=== PATIENT | female | born 1955 | race Caucasian/White ===

== ENCOUNTER → 2016-10-14 | Outpatient (CLI) | payer OTHER ==
[2016-10-14 12:08] LABS: BASO ABS # 0.03 K/uL (0-0.2); COMPLETE YES; EOS % 2.2 %; LYMPH % 32.2 %; LYMPH ABS # 1.01 K/uL (1.2-3.4); MEAN CORPUSCULAR HEMOGLOBIN 32.3 pg (25-34); MEAN PLATELET VOLUME 10.5 fL (7.4-10.4); MONO % 11.1 %; NEUT % 53.5 %; PLATELET COUNT 207 K/uL (130-400); RED BLOOD COUNT 4.21 M/uL (4.2-5.4); WHITE BLOOD COUNT 3.14 K/uL (4.8-10.8)
[2016-10-14 12:21] LABS: BLOOD UREA NITROGEN 14 mg/dl (7-18); BUN/CREATININE RATIO 21.5 (10-20); CALCIUM 8.9 mg/dl (8.5-10.1); CARBON DIOXIDE 30 mmol/L (21-32); CHLORIDE 108 mmol/L (98-107); CREATININE 0.67 mg/dl (0.60-1.20); GLUCOSE 89 mg/dl (70-99); SODIUM 142 mmol/L (136-145)
[2016-10-14 12:33] LABS: CHOLESTEROL 157 mg/dl (0-200); HDL CHOLESTEROL 39 mg/dl; LDL CHOLESTEROL CALCULATED 100 mg/dl; THYROID STIMULATING HORMONE 0.983 uIu/ml (0.300-4.500); TRIGLYCERIDES 90 mg/dl (0-150); VERY LOW DENSITY LIPOPROT CALC 18 mg/dl
== END | disposition home or self-care (01) ==
LOC: C.LAB 10:32
PROVIDERS: ATTEND Internal Medicine Cardiovascular Disease
DX: R07.89 Other chest pain (principal)

== ENCOUNTER → 2016-10-20 | Outpatient (CLI) | payer OTHER | END | disposition home or self-care (01) | LOC: C.PAPS 12:04 | PROVIDERS: ATTEND Nurse Practitioner Adult Health | DX: Z12.4 Encounter for screening for malignant neoplasm of cervix (principal) ==

== ENCOUNTER → 2016-12-29 | Outpatient (CLI) | payer OTHER ==
[2016-12-29 12:09] LABS: BASO % 0.6 %; BASO ABS # 0.03 K/uL (0-0.2); COMPLETE YES; EOS % 3.3 %; HEMATOCRIT 40.1 % (37-47); LYMPH % 25.8 %; LYMPH ABS # 1.34 K/uL (1.2-3.4); MEAN CELL VOLUME 95.9 fL (80-100); MEAN CORPUSCULAR HEMOGLOBIN 31.6 pg (25-34); MEAN CORPUSCULAR HGB CONC 32.9 g/dl (32-36); MEAN PLATELET VOLUME 10.4 fL (7.4-10.4); MONO % 11.9 %; NEUT % 58.4 %; PLATELET COUNT 220 K/uL (130-400); RED BLOOD COUNT 4.18 M/uL (4.2-5.4); WHITE BLOOD COUNT 5.19 K/uL (4.8-10.8)
== END | disposition home or self-care (01) ==
LOC: C.LAB 11:00
PROVIDERS: ATTEND Nurse Practitioner Adult Health
DX: D72.819 Decreased white blood cell count, unspecified (principal)

== ENCOUNTER → 2017-04-19 | Outpatient (CLI) | payer OTHER ==
--- NOTE | 2017-04-19 11:58 | DIAGNOSTIC IMAGING REPORT ---
FLUOROSCOPIC IMAGES OF THE LUMBAR SPINE CLINICAL HISTORY: Low back pain. COMPARISON: None FLUOROSCOPY TIME: FINDINGS: Alignment of the lumbar spine is anatomic. Vertebral body heights are maintained. There is no fracture or suspicious lesion within the lumbar spine. The disc spaces are preserved. There is minimal endplate osteophytosis. There is mild multilevel facet arthrosis. IMPRESSION: 1. No acute lumbar spine fracture or subluxation. 2. Minimal multilevel degenerative disc disease and moderate multilevel facet arthrosis. Electronically signed by: Cipriano Lai M.D. 04/19/2017 11:57 AM Dictated Date/Time: 04/19/2017 11:56 AM
== END | disposition home or self-care (01) ==
LOC: C.RAD 10:49
PROVIDERS: ATTEND Family Medicine
DX: M51.36 Other intervertebral disc degeneration, lumbar region (principal); M47.896 Other spondylosis, lumbar region

== ENCOUNTER → 2017-04-25 | Outpatient (CLI) | payer OTHER ==
[~2017-04-25] MED LIST: OPTIRAY 320 IV PRN
[2017-04-25 16:39] LABS: BASO % 0.2 %; BASO ABS # 0.02 K/uL (0-0.2); COMPLETE YES; EOS % 0.5 %; HEMATOCRIT 38.4 % (37-47); IG% 0.4 %; LYMPH % 25.1 %; LYMPH ABS # 2.07 K/uL (1.2-3.4); MEAN CORPUSCULAR HEMOGLOBIN 32.3 pg (25-34); MEAN CORPUSCULAR HGB CONC 33.6 g/dl (32-36); MEAN PLATELET VOLUME 9.6 fL (7.4-10.4); MONO % 10.7 %; NEUT % 63.1 %; PLATELET COUNT 275 K/uL (130-400); WHITE BLOOD COUNT 8.24 K/uL (4.8-10.8)
[2017-04-25 17:04] LABS: ALB/GLOB RATIO 1.2 (0.9-2); ALKALINE PHOSPHATASE 74 U/L (45-117); ALT/SGPT 19 U/L (12-78); AMYLASE 55 U/L (25-115); AST/SGOT 15 U/L (15-37); BLOOD UREA NITROGEN 21 mg/dl (7-18); BUN/CREATININE RATIO 28.1 (10-20); CALCIUM 9.4 mg/dl (8.5-10.1); CARBON DIOXIDE 26 mmol/L (21-32); CHLORIDE 107 mmol/L (98-107); CREATININE 0.74 mg/dl (0.60-1.20); GLUCOSE 95 mg/dl (70-99); POTASSIUM 3.7 mmol/L (3.5-5.1); SODIUM 142 mmol/L (136-145)
--- NOTE | 2017-04-25 19:00 | DIAGNOSTIC IMAGING REPORT ---
CT ABD/PELVIS IV AND ORAL CONT CLINICAL HISTORY: Abdominal pain. Back pain. Possible bowel obstruction. COMPARISON STUDY: None. TECHNIQUE: Following the IV administration of 120 mL of Optiray-320, CT scan of the abdomen and pelvis was performed from the lung bases to the proximal femurs. Images are reviewed in the axial, sagittal, and coronal planes. IV contrast was administered without complication. A dose lowering technique was utilized adhering to the principles of ALARA. CT DOSE: 574.13 mGy.cm FINDINGS: Lower chest: There are bibasal atelectatic changes. Liver: The contrast-enhanced liver is normal in size, contour, and attenuation. There is no intrahepatic biliary ductal dilatation. The hepatic veins and portal veins are patent. Gallbladder: Unremarkable. Spleen: Normal in size and attenuation. Pancreas: Unremarkable. Adrenal glands: Unremarkable. Kidneys: There is symmetric renal cortical enhancement. The kidneys are normal in size without hydronephrosis. Bowel: There are no transition zones indicate bowel obstruction. There is no evidence of acute diverticulitis. There is a moderate amount of stool within the right colon. There is no evidence of acute appendicitis. Peritoneum: There is no intraperitoneal free air or abdominal ascites. Vasculature: The abdominal aorta is normal in course and caliber. Adenopathy: None. Pelvic viscera: The bladder, and pelvic viscera are unremarkable. Skeletal structures: There is an inferior L1 endplate deformity. This remain similar to the prior conventional radiographic study dated 04/19/2017 IMPRESSION: 1. No evidence of bowel obstruction. No evidence of free air 2. No evidence of acute diverticulitis. No evidence of acute appendicitis 3. Moderate stool within the ascending, transverse and proximal descending colon. Clinical correlation in regards to constipation is recommended. Electronically signed by: Shad Crenshaw M.D. 04/25/2017 6:59 PM Dictated Date/Time: 04/25/2017 6:54 PM
== END | disposition home or self-care (01) ==
LOC: C.CTS 16:19
PROVIDERS: ATTEND Family Medicine
DX: R10.84 Generalized abdominal pain (principal); M54.9 Dorsalgia, unspecified

== ENCOUNTER → 2017-05-19 | Outpatient (CLI) | payer OTHER ==
--- NOTE | 2017-05-20 13:42 | MAMMOGRAPHY REPORT ---
BILATERAL DIGITAL SCREENING MAMMOGRAM TOMOSYNTHESIS WITH CAD: 05/19/2017 CLINICAL HISTORY: Routine screening. Patient has no complaints. TECHNIQUE: Breast tomosynthesis in addition to standard 2D mammography was performed. Current study was also evaluated with a Computer Aided Detection (CAD) system. COMPARISON: Comparison is made to exams dated: 05/07/2016 mammogram, 02/18/2015 mammogram, 08/19/2014 m ammogram, 02/26/2014 mammogram, 02/18/2014 mammogram, and 02/16/2013 mammogram - maria eugenia Frank Bo. BREAST COMPOSITION: There are scattered areas of fibroglandular density in both breasts. FINDINGS: No suspicious masses, calcifications, or areas of architectural distortion are noted in ei ther breast. There has been no significant interval change compared to prior exams. Scattered bilater al benign-appearing calcifications are not significantly changed. IMPRESSION: ACR BI-RADS CATEGORY 2: BENIGN There is no mammographic evidence of malignancy. A 1 year screening mammogram is recommended. The pa tient will receive written notification of the results. Approximately 10% of breast cancers are not detected with mammography. A negative mammographic report should not delay biopsy if a clinically suggestive mass is present. Kala Caceres M.D. /:05/19/2017 16:37:07 Criminal Defense Lawyer: Albina Yoo, [facility] letter sent: Normal 1/2 BI-RADS Code: ACR BI-RADS Category 2: Benign
== END | disposition home or self-care (01) ==
LOC: C.MAMM 08:49
PROVIDERS: ATTEND Nurse Practitioner Adult Health
DX: Z12.31 Encounter for screening mammogram for malignant neoplasm of breast (principal)

== ENCOUNTER → 2017-07-04 | Outpatient (CLI) | payer OTHER | END | disposition home or self-care (01) | LOC: C.MAMM 08:43 | PROVIDERS: ATTEND Internal Medicine Rheumatology | DX: M81.0 Age-related osteoporosis without current pathological fracture (principal); M85.88 Other specified disorders of bone density and structure, other site; M85.851 Other specified disorders of bone density and structure, right thigh; M85.852 Other specified disorders of bone density and structure, left thigh ==

== ENCOUNTER → 2017-07-22 | Outpatient (CLI) | payer OTHER ==
[2017-07-22 10:58] LABS: CALCIUM 9.4 mg/dl (8.5-10.1); CREATININE 0.73 mg/dl (0.60-1.20)
[2017-07-26 17:16] LABS: ALBUMIN 4.4 G/DL (3.8-4.8); GAMMA GLOBULIN 0.9 G/DL (0.8-1.7); TOTAL PROTEIN 7.1 G/DL (6.2-8.3)
== END | disposition home or self-care (01) ==
LOC: C.LAB1850 09:42
PROVIDERS: ATTEND Internal Medicine Rheumatology
DX: M81.0 Age-related osteoporosis without current pathological fracture (principal); E61.8 Deficiency of other specified nutrient elements; E55.9 Vitamin D deficiency, unspecified

== ENCOUNTER → 2017-08-04 | Outpatient (CLI) | payer OTHER | END | disposition home or self-care (01) | LOC: C.LAB1850 11:31 | PROVIDERS: ATTEND Internal Medicine Rheumatology | DX: M81.0 Age-related osteoporosis without current pathological fracture (principal); E55.9 Vitamin D deficiency, unspecified; E61.8 Deficiency of other specified nutrient elements ==

== ENCOUNTER → 2017-11-28 | Outpatient (CLI) | payer OTHER | END | disposition home or self-care (01) | LOC: C.LAB 16:12 | PROVIDERS: ATTEND Family Medicine | DX: Z00.00 Encounter for general adult medical examination without abnormal findings (principal); Z11.59 Encounter for screening for other viral diseases ==

== ENCOUNTER 2025-05-11 14:50 | Inpatient (IN) ==
--- NOTE | 2025-05-11 15:37 | Emergency Department Note ---
History of Present Illness General Chief complaint: Hip Pain Stated complaint: HIP/BACK PAIN, FEVER Time Seen by Provider: 05/11/25 15:25 History of Present Illness Maximum Pain Intensity: 7 This is a 70-year-old female that presents to the emergency department via private vehicle with complaints of "hip/back pain, fever". The patient states that 3 weeks ago she developed back and hip pain. No known trauma or injury. She notes history of osteoporosis and thought perhaps because she could have a compression fracture in the spine. However, she notes that at night she will wake and have cold sweats. This is quickly abated when she takes Tylenol or ibuprofen. However she notes that about 10 days ago on last she underwent chiropractic adjustment and since then has had fever intermittently. She also notes she is quite fatigued and tired. No chest pain or shortness of breath. She has nausea but no vomiting. There has been no headache. She denies any known tick bites. No rashes. She notes the pain is in the low back and hip area. It does not radiate down the legs. No incontinence. No numbness or tingling in the genital region. There is no leg weakness. No unilateral weakness. Home Medications Medication Instructions Recorded Confirmed Type multivitamin (Daily Multi-Vitamin 1 tab PO DAILY 02/07/20 05/11/25 History tablet) vitamin B complex 1 tab PO QPM 04/28/20 05/11/25 History calcium carbonate (Calcium 600) 0 mg PO QPM 02/11/23 05/11/25 History magnesium 0 tab PO QPM 02/11/23 05/11/25 History zinc 1 tab PO QAM 02/11/23 05/11/25 History cholecalciferol (vitamin D3) 25 0 unit PO QPM 02/17/23 05/11/25 History mcg (1,000 unit) capsule zoledronic acid 5 mg/100 mL in 1 ea IV ONCE 03/16/24 05/11/25 History mannitol 5 %-water intravenous piggybck (Reclast) omega 8-crl-iwj-fish oil 60 mg-90 1 cap PO DAILY 11/09/24 05/11/25 History mg-500 mg capsule (Fish Oil) Allergies Allergy/AdvReac Type Severity Reaction Status Date / Time No Known Allergies Allergy Verified 01/02/25 10:16 Past Med/Surg History Problem List (Updated 05/11/25 @ 21:36 by Epi Kendrick PA-C) Fever (Acute) Hyponatremia (Acute) Thrombocytopenia (Acute) Tachycardia Fever Fracture of fifth metacarpal bone of left hand (Acute ~05/27/24) left hand/minimally displaced oblique fracture through the base of the fifth metacarpal History of colon polyps GERD (gastroesophageal reflux disease) Migratory pain Pericardial effusion Lung nodule seen on imaging study "told it was nothing to worry about after having this checked" Dyslipidemia Mitral regurgitation Aortic valve insufficiency Leukopenia (Chronic) Low back pain (Chronic) Osteopenia (Chronic) Vitamin D deficiency (Chronic) Cardiac murmur follows with [facility]ano cardio Medical History Mitral regurgitation Pericardial effusion hx- states was very mild Dyslipidemia Lung nodule seen on imaging study "told it was nothing to worry about after having this checked" History of COVID-19 (04/2022) no hosp; resolved Aortic valve insufficiency Cardiac murmur follows with [facility]zano cardio GERD (gastroesophageal reflux disease) Osteoporosis Hiatal hernia Osteoarthritis Left inguinal hernia Surgical History History of right breast biopsy benign--titanium loop present in breast History of section History of colonoscopy History of esophagogastroduodenoscopy (EGD) History of tooth extraction wisdom teeth Family History Father Family history of diabetes mellitus Myocardial infarction Cardiac disorder Diabetes Mother Family history of diabetes mellitus Cardiac disorder Diabetes Brother Family history of diabetes mellitus Diabetes Hypertension Sister Family history of diabetes mellitus Diabetes Gallbladder disease Denies family history of Ovarian cancer Prostate cancer Breast cancer Colorectal cancer Social History Smoking Status: Never smoker Tobacco Type: Cigarettes Age Started Using Tobacco: 21; Age Quit Using Tobacco: 35; packs per day: 0.5; Cigarettes Per Day: 1-2; Second Hand Exposure: Yes (as child); Do You Dip or Chew Tobacco: No; Hx Alcohol Use: Yes (rare) Alcohol Intake Frequency: Monthly or Less Hx Substance Use: No Preferred Language: Ecuadorean Communication Ability: Effective Visual Impairment: No Limitations Hearing Ability: Normal Montessori Program Director Required: No Beliefs That Will Affect Care: None marital status: Current Living Situation: Spouse Current Living Situation Comment: Lives with current occupational status: retired current occupation: automotive parts person property management How many Children do You have: 1 Feels Safe at Home: Yes Childhood Exposure to Second-Hand Smoke: Yes Diet: regular Diet Comment: regular caffeine: Yes during the past year weight has: remained stable Dental Care, Regularly: Yes Physical Activity Frequency: Daily Seatbelt Use: always Sunscreen Use: Yes (sometimes ) Assistive Devices: Glasses Review of Systems A total of 10 systems reviewed and were otherwise negative Physical Exam Vital Signs Vital Signs - 24 hr 05/11/25 15:19 05/11/25 15:54 05/11/25 15:55 Temperature 37.8 C H Temperature Source Oral Pulse Rate 113 H 101 H Pulse Rate [Apical] 101 H Respiratory Rate 18 20 18 Respiratory Effort / Characteristics Non-Labored Spontaneous Non-Labored Spontaneous Respiratory Depth Normal Normal Respiratory Pattern Regular Blood Pressure 116/70 Blood Pressure [Right Arm] 124/77 Blood Pressure Mean 85 Blood Pressure Mean [Right Arm] 92 Blood Pressure Position [Right Arm] Lying Pulse Oximetry 93 97 93 Oxygen Delivery Method Room Air Room Air Room Air Sepsis Recent Fever Within 48 Hours Yes Sepsis New/Unexplained Change in Mental Status No Sepsis Action Taken by Nursing No Action Required 05/11/25 17:22 05/11/25 17:41 05/11/25 20:14 Temperature Temperature Source Pulse Rate 95 H Pulse Rate [Apical] 92 H 87 Respiratory Rate 18 16 Respiratory Effort / Characteristics Non-Labored Spontaneous Non-Labored Spontaneous Respiratory Depth Normal Respiratory Pattern Regular Blood Pressure Blood Pressure [Right Arm] 126/80 110/58 L Blood Pressure Mean Blood Pressure Mean [Right Arm] 95 75 Blood Pressure Position [Right Arm] Lying Pulse Oximetry 94 94 Oxygen Delivery Method Room Air Room Air Sepsis Recent Fever Within 48 Hours Sepsis New/Unexplained Change in Mental Status Sepsis Action Taken by Nursing 05/11/25 21:09 Temperature Temperature Source Pulse Rate 81 Pulse Rate [Apical] Respiratory Rate Respiratory Effort / Characteristics Respiratory Depth Respiratory Pattern Blood Pressure Blood Pressure [Right Arm] Blood Pressure Mean Blood Pressure Mean [Right Arm] Blood Pressure Position [Right Arm] Pulse Oximetry Oxygen Delivery Method Sepsis Recent Fever Within 48 Hours Sepsis New/Unexplained Change in Mental Status Sepsis Action Taken by Nursing VITAL SIGNS - Vital signs and nursing notes were reviewed. Febrile, tachycardic. GENERAL -70-year-old female appearing her stated age who is in no acute distress. Communicates well with provider and answers questions appropriately. SKIN - Without rashes. No meningeal or petechial rash. HEAD - NC/AT. EYES - PERRL with EOMI bilaterally. Sclera anicteric. EARS - No deformities of external structures noted on gross examination bilaterally. NOSE - Midline and without cyanosis. No epistaxis or purulent drainage noted. MOUTH/OROPHARYNX - Without perioral cyanosis. NECK - Neck with FROM. No nuchal rigidity. LUNGS - CTA CARDIAC - RRR ABDOMEN - Abdominal contour normal without pulsations or visible masses. BS normoactive all four quadrants. No tenderness, palpable masses, hepatosplenomegaly, or ascites noted. EXTREMITIES - No clubbing or peripheral cyanosis. +5/5 strength noted in UE/LE bilaterally. MSK-there is no reproducible tenderness to palpation overlying the L-spine or paraspinous musculature NEUROLOGIC - Cranial nerves II through XII grossly intact. PSYCH -alert, oriented and pleasant on exam Course Administered Medications Sodium Chloride (Nss) 1,000 mls @ 80 mls/hr IV .[id number] OBDULIA Stop: 05/12/25 06:59 Last Admin: 05/11/25 20:16 Dose: 80 mls/hr Documented By: RITA Discontinued Medications Acetaminophen (Acetaminophen 325 Mg Tab) 650 mg PO NOW STA Stop: 05/11/25 17:02 Last Admin: 05/11/25 17:11 Dose: 650 mg Documented By: GILL Doxycycline Hyclate (Doxycycline Hyclate 100 Mg Cap) 100 mg PO NOW STA Stop: 05/11/25 17:14 Last Admin: 05/11/25 17:37 Dose: 100 mg Documented By: WILLIANK Sodium Chloride (Nss) 1,000 mls @ 999 mls/hr IV .[id number] ONE Stop: 05/11/25 16:34 Last Infusion: 05/11/25 17:27 Dose: Infused Documented By: Admin: 05/11/25 15:53 Dose: 999 mls/hr Documented By: TNK Ceftriaxone Sodium (Rocephin) 2,000 mg in 50 mls @ 100 mls/hr IV NOW STA Stop: 05/11/25 17:42 Last Infusion: 05/11/25 18:33 Dose: Infused Documented By: demetrius Admin: 05/11/25 17:37 Dose: 100 mls/hr Documented By: ENID Ioversol (Optiray 320 100ml) 93 ml IV ONCE ONE Stop: 05/11/25 16:47 Last Admin: 05/11/25 16:46 Dose: 93 ml Documented By: OUSMANE Potassium Chloride (Potassium Chloride Crtab 20 Meq Tabcr) 20 meq PO NOW STA Stop: 05/11/25 18:26 Last Admin: 05/11/25 18:31 Dose: 20 meq Documented By: demetrius Medical Decision Making Laboratory Data 05/11/25 15:50 05/11/25 15:50 Lab Results 05/11/25 05/11/25 05/11/25 Range/Units 15:45 15:50 17:31 WBC 2.13 L (4.8-10.8) K/ul RBC 3.91 L (4.20-5.40) M/uL Hgb 12.3 (12.0-16.0) g/dl Hct 35.2 L (37.0-47.0) % MCV 90.0 (80.0-100.0) fL MCH 31.5 (25.0-34.0) pg MCHC 34.9 (32.0-36.0) g/dL RDW Std Deviation 42.9 (36.4-46.3) fL RDW Coeff of [place] 13.0 (11.5-14.5) % Plt Count 69 L (130-400) K/uL MPV 11.3 (9.4-12.4) fL Immature Gran % (Auto) 0.5 % Neut % (Auto) 72.8 % Lymph % (Auto) 19.2 % [place] % (Auto) 7.0 % Eos % (Auto) 0.0 % Baso % (Auto) 0.5 % Neut # (Auto) 1.55 (1.40-6.50) K/uL Lymph # (Auto) 0.41 L (1.20-3.40) K/uL [place] # (Auto) 0.15 (0.11-0.59) K/uL Eos # (Auto) 0.00 (0.00-0.50) K/uL Baso # (Auto) 0.01 (0.00-0.20) K/uL Immature Gran # (Auto) 0.01 (0.01-0.20) K/uL Sodium 132 L (136-145) mmol/L Potassium 3.4 L (3.5-5.1) mmol/L Chloride 101 (98-107) mmol/L Carbon Dioxide 24 (21-32) mmol/L Anion Gap 7 (3-11) BUN 17 (6-23) mg/dl Creatinine 0.56 L (0.6-1.2) mg/dl Est Cr Clr Drug Dosing 79.7 ml/min eGFR 98.12 BUN/Creatinine Ratio 30.4 H (10-20) Glucose 137 H (70-99(Fasting)) mg/dl Lactate 1.0 (0.4-2.0) mmol/L Calcium 8.9 (8.6-10.3) mg/dl Total Bilirubin 0.4 (0.2-1.0) mg/dl AST 44 H (13-39) U/L ALT 26 (7-52) U/L Alkaline Phosphatase 65 (34-104) U/L Total Creatine Kinase (26-192) U/L Total Protein 6.4 (6.0-8.3) gm/dl Albumin 3.5 (3.4-5.0) gm/dl Globulin 2.9 (2.5-4.0) gm/dl Albumin/Globulin Ratio 1.2 (0.9-2) Procalcitonin 1.16 H (0-0.5) ng/ml HCG, Qual Negative (Negative) Urine Color Yellow Urine Appearance Clear (Clear) Urine pH 5.5 (4.5-7.5) Ur Specific [place] > 1.045 H (1.000-1.030) Urine Protein 1+ H (Negative) Urine Glucose (UA) Negative (Negative) Urine Ketones 1+ H (Negative) Urine Blood Trace H (Negative) Urine Nitrite Negative (Negative) Urine Bilirubin Negative (Negative) Urine Urobilinogen Negative (Negative) Ur Leukocyte Esterase Negative (Negative) Urine WBC (Auto) 0-5 (0-5) /hpf Urine RBC (Auto) 0-2 (0-2) /hpf U Hyaline Cast (Auto) 0-2 (0-2) /lpf U Epithel Cells (Auto) 0-2 (0-2) /hpf Urine Bacteria (Auto) None Seen (None Seen) Urine Comment Adenovirus (PCR) Not Detected (NotDetected) Anaplasma Smear See Comment Babesia Smear See Comment B. pertussis DNA (PCR) Not Detected (NotDetected) B.parapertussis DNA PCR Not Detected (NotDetected) Lyme Disease Screen Negative (Negative) C. pneumoniae DNA (PCR) Not Detected (NotDetected) Coronavirus OC43 (PCR) Not Detected (NotDetected) Coronavirus HKU1 (PCR) Not Detected (NotDetected) Coronavirus 229E (PCR) Not Detected (NotDetected) SARS-CoV-2 (PCR) Not Detected (NotDetected) Coronavirus NL63 (PCR) Not Detected (NotDetected) Human Metapneumovir PCR Not Detected (NotDetected) Influenza Type A (PCR) Not Detected (NotDetected) Influenza Type B (PCR) Not Detected (NotDetected) M. pneumoniae (PCR) Not Detected (NotDetected) Parainfluenza 1 (PCR) Not Detected (NotDetected) Parainfluenza 2 (PCR) Not Detected (NotDetected) Parainfluenza 3 (PCR) Not Detected (NotDetected) Parainfluenza 4 (PCR) Not Detected (NotDetected) RSV (PCR) Not Detected (NotDetected) Entero/Rhino (PCR) Not Detected (NotDetected) 05/11/25 Range/Units 20:18 WBC (4.8-10.8) K/ul RBC (4.20-5.40) M/uL Hgb (12.0-16.0) g/dl Hct (37.0-47.0) % MCV (80.0-100.0) fL MCH (25.0-34.0) pg MCHC (32.0-36.0) g/dL RDW Std Deviation (36.4-46.3) fL RDW Coeff of [place] (11.5-14.5) % Plt Count (130-400) K/uL MPV (9.4-12.4) fL Immature Gran % (Auto) % Neut % (Auto) % Lymph % (Auto) % [place] % (Auto) % Eos % (Auto) % Baso % (Auto) % Neut # (Auto) (1.40-6.50) K/uL Lymph # (Auto) (1.20-3.40) K/uL [place] # (Auto) (0.11-0.59) K/uL Eos # (Auto) (0.00-0.50) K/uL Baso # (Auto) (0.00-0.20) K/uL Immature Gran # (Auto) (0.01-0.20) K/uL Sodium (136-145) mmol/L Potassium (3.5-5.1) mmol/L Chloride (98-107) mmol/L Carbon Dioxide (21-32) mmol/L Anion Gap (3-11) BUN (6-23) mg/dl Creatinine (0.6-1.2) mg/dl Est Cr Clr Drug Dosing ml/min eGFR BUN/Creatinine Ratio (10-20) Glucose (70-99(Fasting)) mg/dl Lactate (0.4-2.0) mmol/L Calcium (8.6-10.3) mg/dl Total Bilirubin (0.2-1.0) mg/dl AST (13-39) U/L ALT (7-52) U/L Alkaline Phosphatase (34-104) U/L Total Creatine Kinase 81 (26-192) U/L Total Protein (6.0-8.3) gm/dl Albumin (3.4-5.0) gm/dl Globulin (2.5-4.0) gm/dl Albumin/Globulin Ratio (0.9-2) Procalcitonin (0-0.5) ng/ml HCG, Qual (Negative) Urine Color Urine Appearance (Clear) Urine pH (4.5-7.5) Ur Specific [place] (1.000-1.030) Urine Protein (Negative) Urine Glucose (UA) (Negative) Urine Ketones (Negative) Urine Blood (Negative) Urine Nitrite (Negative) Urine Bilirubin (Negative) Urine Urobilinogen (Negative) Ur Leukocyte Esterase (Negative) Urine WBC (Auto) (0-5) /hpf Urine RBC (Auto) (0-2) /hpf U Hyaline Cast (Auto) (0-2) /lpf U Epithel Cells (Auto) (0-2) /hpf Urine Bacteria (Auto) (None Seen) Urine Comment Adenovirus (PCR) (NotDetected) Anaplasma Smear Babesia Smear B. pertussis DNA (PCR) (NotDetected) B.parapertussis DNA PCR (NotDetected) Lyme Disease Screen (Negative) C. pneumoniae DNA (PCR) (NotDetected) Coronavirus OC43 (PCR) (NotDetected) Coronavirus HKU1 (PCR) (NotDetected) Coronavirus 229E (PCR) (NotDetected) SARS-CoV-2 (PCR) (NotDetected) Coronavirus NL63 (PCR) (NotDetected) Human Metapneumovir PCR (NotDetected) Influenza Type A (PCR) (NotDetected) Influenza Type B (PCR) (NotDetected) M. pneumoniae (PCR) (NotDetected) Parainfluenza 1 (PCR) (NotDetected) Parainfluenza 2 (PCR) (NotDetected) Parainfluenza 3 (PCR) (NotDetected) Parainfluenza 4 (PCR) (NotDetected) RSV (PCR) (NotDetected) Entero/Rhino (PCR) (NotDetected) Imaging Data Radiologist's Impression: Abdomen/Pelvis CT 05/11/25 15:34 EXAMINATION: CT of the abdomen and pelvis performed after the administration of IV contrast TECHNIQUE: Helical CT images from the lung bases through the symphysis pubis were obtained with contrast. Coronal and sagittal reformatted images were generated at a workstation for further assessment. Dose reduction techniques were achieved by using automatic exposure control and/or adjustment of mA and/or kV according to patient size and/or use of iterative reconstruction technique. COMPARISON: None HISTORY: Abdominal pain FINDINGS: Lower chest: No consolidation. No pleural effusion or pneumothorax. Scattered streaky atelectasis throughout the mid and lower lungs. Liver: No suspicious liver lesions. Portal veins appear patent. Gallbladder: No gallstones. No evidence of acute cholecystitis. Spleen: Normal size. Pancreas: No suspicious pancreatic lesions. The pancreatic duct is not dilated. Adrenal glands: No adrenal nodules. Kidneys: No hydronephrosis or obstructing renal stones. Bladder / Pelvic organs: There is dilation of the left gonadal vein up to 10 mm. The left periuterine vessels are prominent.. Bowel: No bowel obstruction. No abnormal bowel wall thickening. The appendix is unremarkable. There is a moderate to large colonic stool burden, as well as significant gaseous distention of the right colon. Lymph nodes: No retroperitoneal, mesenteric, or pelvic lymphadenopathy. Peritoneum / Retroperitoneum: No free fluid or air within the abdomen. Vessels: No infrarenal aortic aneurysm. Bones and soft tissues: No suspicious lesion in the bones. IMPRESSION: Moderate to large colonic stool burden, as well as significant gaseous distention of the right colon, which may be seen with constipation. Prominent left gonadal vein and left periuterine vessels, may be seen with pelvic congestion syndrome. Electronically signed by Ian Ly 05-11-2025 5:11 PM Chest X-Ray 05/11/25 15:34 Chest radiograph, one view History: Chest pain Comparison: None Findings: Single AP view of the chest performed. No focal consolidation or pleural effusion. No pneumothorax. The cardiomediastinal silhouette is within normal limits. Normal pulmonary vascularity. No evidence for lymphadenopathy. No visualized bony or soft tissue abnormality. Impression: Normal chest radiograph Electronically signed by Ian Ly 05-11-2025 4:29 PM MDM Narrative Patient was seen and evaluated as above in room D05. Review was performed of triage nursing notes and vital signs. I did review pertinent previous visits and patient history. After obtaining a thorough history and physical examination the above work up was performed. Patient presents with the above symptoms. She is well-appearing and nontoxic on exam. She is mildly tachycardic and borderline febrile. Options of care were discussed with the patient. IV access was established. Labs were drawn. There is new leukopenia 2.13. No concerning anemia. There is new thrombocytopenia at 69. There is new hyponatremia at 132. Mild hypokalemia at 3.4. There is hyperglycemia 137. There is mild transaminitis with AST of 44. Procalcitonin detectable at 1.16. hCG negative. Lactate within normal range. Urinalysis does not reveal evidence of infection. BioFire panel negative. A chest x-ray was obtained and was negative. A CT scan was obtained of the abdomen/pelvis and there was some constipation and perhaps pelvic vascular congestion but these are not felt to be contributory to the patient's acute symptoms at this time. The patient notes normal bowel movements as of recent. There is no abdominal distention. She has a benign abdominal exam. Lyme screen returned negative. Babesia and Anaplasma smear negative. Currently there is pending Anaplasma DNA, Babesia DNA, and Ehrlichia are all pending. I do have a high suspicion that the patient's presentation could be from anaplasmosis noting the laboratory abnormalities today and symptoms. Patient was empirically covered here with oral doxycycline. I also ordered IV ceftriaxone for empiric broad coverage noting the ongoing progressive fever and symptoms above. Blood cultures are currently pending. At this time I do believe that further evaluation and management in the inpatient setting is warranted. Case discussed with the hospitalist service. Please refer to further documentation regarding her stay. GCS: 15 In the evaluation and treatment of this patient the following differential diagnoses were entertained: UTI, pyelonephritis, diverticulitis, perforated viscus, Anaplasma/tickborne illness, among others. Impression & Plan Fever, Leukopenia, Thrombocytopenia, Hyponatremia Discharge Plan Visit Data Chief Complaint: Hip Pain Stated Complaint: HIP/BACK PAIN, FEVER ED Provider: Carmen Pace ED Midlevel Provider: Epi Kendrick Discharge Problem: Fever, Leukopenia, Thrombocytopenia, Hyponatremia Patient Disposition: Admitted As Inpatient Condition: Good Forms Stand Alone Forms: My [facility] [employer] Prescriptions Prescriptions: No Action multivitamin [Daily Multi-Vitamin] Tablet 1 tab PO DAILY Patient Comments: 05/11- Per pt, she doesnt need any of her vitamins during this admission cholecalciferol (vitamin D3) 25 mcg (1,000 unit) capsule 0 unit PO QPM Patient Comments: 05/11- Per pt, she doesnt need any of her vitamins during this admission vitamin B complex Tablet 1 tab PO QPM Patient Comments: 05/11- Per pt, she doesnt need any of her vitamins during this admission omega 0-cnp-szp-fish oil [Fish Oil] 60-90-500 mg capsule 1 cap PO DAILY Patient Comments: 05/11- Per pt, she doesnt need any of her vitamins during this admission zoledronic [id number] [Reclast] 5 mg/100 mL piggyback 1 ea IV ONCE Patient Comments: Rx Instructions: yearly calcium carbonate [Calcium 600] 600 mg calcium (1,500 mg) Tablet 0 mg PO QPM Patient Comments: 05/11- Per pt, she doesnt need any of her vitamins during this admission zinc Tablet,Chewable 1 tab PO QAM Patient Comments: 05/11- Per pt, she doesnt need any of her vitamins during this admission magnesium Tablet 0 tab PO QPM Patient Comments: 05/11- Per pt, she doesnt need any of her vitamins during this admission Referrals Referrals: Funmi Almaraz MD [Primary Care Provider] -
[2025-05-11] MEDS: SODIUM CHLORIDE 0.9% 1,000 ML IV ONE (15:53)
[2025-05-11 16:22] LABS: Alanine Aminotransferase 26.0 U/L (7-52); Albumin Globulin Ratio 1.2 (0.9-2); Albumin Level 3.5 gm/dl (3.4-5.0); Alkaline Phosphatase 65.0 U/L (34-104); Anion Gap 7.0 (3-11); Bilirubin,Total 0.4 mg/dl (0.2-1.0); Blood Urea Nitrogen 17.0 mg/dl (6-23); Calcium 8.9 mg/dl (8.6-10.3); Carbon Dioxide 24.0 mmol/L (21-32); Chloride 101.0 mmol/L (98-107); Creatinine Clr Calc Pharmacy 79.7 ml/min; Globulin 2.9 gm/dl (2.5-4.0); Glucose 137.0 mg/dl (70-99(Fasting)); Potassium 3.4 mmol/L (3.5-5.1); Sodium 132.0 mmol/L (136-145); Total Protein 6.4 gm/dl (6.0-8.3)
[2025-05-11 16:28] LABS: Procalcitonin 1.16 ng/ml (0-0.5)
--- NOTE | 2025-05-11 16:29 | XRay Report ---
Chest radiograph, one view History: Chest pain Comparison: None Findings: Single AP view of the chest performed. No focal consolidation or pleural effusion. No pneumothorax. The cardiomediastinal silhouette is within normal limits. Normal pulmonary vascularity. No evidence for lymphadenopathy. No visualized bony or soft tissue abnormality. Impression: Normal chest radiograph Electronically signed by Ian Ly 05-11-2025 4:29 PM
[2025-05-11 16:31] LABS: Hematocrit (blood only) 35.2 % (37.0-47.0); Hemoglobin 12.3 g/dl (12.0-16.0); Mean Corpuscular Hemoglobin 31.5 pg (25.0-34.0); Mean Corpuscular Volume 90.0 fL (80.0-100.0); Platelet Count 69 K/uL (130-400); RDW Standard Deviation 42.9 fL (36.4-46.3); Red Blood Count 3.91 M/uL (4.20-5.40); White Blood Count 2.13 K/ul (4.8-10.8)
[2025-05-11 16:36] LABS: Pregnancy Test, Serum Negative (Negative)
[2025-05-11] MEDS: OPTIRAY 320 100ml IV ONE (16:46)
[2025-05-11 16:55] LABS: Chlamydia pneumoniae PCR Not Detected (NotDetected); Coronavirus 229E PCR Not Detected (NotDetected); Coronavirus CoV-2 (COVID19)PCR Not Detected (NotDetected); Coronavirus HKU1 PCR Not Detected (NotDetected); Coronavirus NL63 PCR Not Detected (NotDetected); Coronavirus OC43PCR Not Detected (NotDetected); Human Metapneumovirus PCR Not Detected (NotDetected); Parainfluenza Virus 1 PCR Not Detected (NotDetected); Parainfluenza Virus 2 PCR Not Detected (NotDetected); Parainfluenza Virus 3 PCR Not Detected (NotDetected); Parainfluenza Virus 4 PCR Not Detected (NotDetected); Respiratory Syncytial VirusPCR Not Detected (NotDetected); Rhinovirus/Enterovirus PCR Not Detected (NotDetected)
[2025-05-11 16:59] LABS: Immature Granulocytes # (auto) 0.01 K/uL (0.01-0.20); Immature Granulocytes % (auto) 0.5 %
--- NOTE | 2025-05-11 16:59 | Emergency Department Note ---
ED Visit Note I was consulted by the Advanced Practice Provider. I personally made/approved the management plan and take responsibility for the patient management. I performed a substantive portion of the visit. This includes the aspects of: [-History/Physical] [-MDM] .
[2025-05-11] MEDS: ACETAMINOPHEN 325 MG TAB PO STA (17:11)
--- NOTE | 2025-05-11 17:11 | CT Scan Report ---
EXAMINATION: CT of the abdomen and pelvis performed after the administration of IV contrast TECHNIQUE: Helical CT images from the lung bases through the symphysis pubis were obtained with contrast. Coronal and sagittal reformatted images were generated at a workstation for further assessment. Dose reduction techniques were achieved by using automatic exposure control and/or adjustment of mA and/or kV according to patient size and/or use of iterative reconstruction technique. COMPARISON: None HISTORY: Abdominal pain FINDINGS: Lower chest: No consolidation. No pleural effusion or pneumothorax. Scattered streaky atelectasis throughout the mid and lower lungs. Liver: No suspicious liver lesions. Portal veins appear patent. Gallbladder: No gallstones. No evidence of acute cholecystitis. Spleen: Normal size. Pancreas: No suspicious pancreatic lesions. The pancreatic duct is not dilated. Adrenal glands: No adrenal nodules. Kidneys: No hydronephrosis or obstructing renal stones. Bladder / Pelvic organs: There is dilation of the left gonadal vein up to 10 mm. The left periuterine vessels are prominent.. Bowel: No bowel obstruction. No abnormal bowel wall thickening. The appendix is unremarkable. There is a moderate to large colonic stool burden, as well as significant gaseous distention of the right colon. Lymph nodes: No retroperitoneal, mesenteric, or pelvic lymphadenopathy. Peritoneum / Retroperitoneum: No free fluid or air within the abdomen. Vessels: No infrarenal aortic aneurysm. Bones and soft tissues: No suspicious lesion in the bones. IMPRESSION: Moderate to large colonic stool burden, as well as significant gaseous distention of the right colon, which may be seen with constipation. Prominent left gonadal vein and left periuterine vessels, may be seen with pelvic congestion syndrome. Electronically signed by Ian Ly 05-11-2025 5:11 PM
[2025-05-11 17:31] LABS: Lyme Screen Rflx Confirmation Negative (Negative)
--- NOTE | 2025-05-11 17:31 | History & Physical Report ---
Date of Service May 11, 2025 Assessment & Plan (1) Fever: (2) Tachycardia: (3) Thrombocytopenia: (4) Leukopenia: (5) Hyponatremia: Plan This patient is a 70-year-old female who presented on 05/11 for bilateral hip and lower back pain. #Suspected tickborne illness | fever Leukopenic at 2.13; febrile at 37.8 C on ED arrival + tachycardic at 113 bpm Intermittent fevers, and achiness at home UA negative CXR without acute abnormalities Lyme negative BioFire negative Suspect Anaplasmosis (babesiosis and erlichia also pending) New thrombocytopenia at 69 Mildly elevated AST at 44 Procalcitonin mildly elevated 1.16 CRP ordered, pending Empiric treatment with ceftriaxone 2000 mg IV q24h Doxycycline 100 mg p.o. q12h Monitor a.m. labs #Tachycardia Patient reports she has been getting up to 120 bpm overnight while resting Clinically, she denies chest pain, chest palpitations, SOB, or pleuritic CP Continuous telemetry monitoring for now #Hyponatremia Mild; Na 132 on arrival NSS 1000 m IV x 1 Gentle IVF with NSS at 80mL/hr x 1 L overnight Recheck a.m. sodium level #Hypokalemia Mild; K 3.4 on arrival Potassium chloride 20mEq p.o. x 1 A.m. magnesium level Replete PRN Disposition: Obs - Admit to MedSurg telemetry VTE PPx: SCDs History of Present Illness Chief Complaint: Hip pain, fever Primary Care Provider: Funmi Almaraz MD Mrs. Haider is a 70-year-old female with PMH of vitamin D deficiency, aortic valve insufficiency, and GERD. She presented on 05/11 for bilateral hip and lower back pain x 3 weeks [employer] SAL[employer]. Initially, she thought it might be due to her history of sciatica or compression fractures, but then she began developing fevers 4 to 5 days ago. Prior episodes of sciatica were only left-sided; this episode is bilateral. She mainly has pain when she bends down to flush the toilet, or times to get out of bed. 0 out of 10 pain while resting, but 8 out of 10 pain with activity. Patient began having fevers for 5 days ago, and she has been rotating Tylenol and ibuprofen at bedtime for her symptoms. She says that if she did not take Tylenol before bed, she would "wake up with night sweats". Originally, she thought that she "had the flu". Normally, she gets her flu shot every fall, but has not gotten her yet. No sick contacts to her knowledge. No recent falls or injuries to the abdomen or pelvis. While patient denies any rashes or tick bites, she and her do live [facility] the [facility] [place]. She had a tickborne illness "years ago". She has also had intermittent constipation, but reports she had a solid bowel movement yesterday. No blood in the urine or stool. Patient did not take her regular morning medicine today, but only takes vitamins. No recent change in medications or supplements. NKDA. Patient is febrile at 37.8 C on arrival; vitals otherwise stable. ED course: Ceftriaxone 2000 mg IV Doxycycline 100 mg p.o. NSS 1000 mL IV Acetaminophen 650 mg p.o. ROS: Patient endorses easy fatigability, intermittent fevers, rapid heart rate (she reports that she woke up 1 night and her heart rate was around 120 bpm), night sweats, neck stiffness, bilateral hip pain, lower back pain, increased dyspnea on exertion (such as walking up steps), and generalized "achiness". Patient denies lightheadedness with ambulation, headaches, double vision, photophobia, rashes, tick bites, neck pain, cough, chest pain, SOB, pleuritic CP, nausea, vomiting, diarrhea, burning with urination, blood in the urine or stool, or numbness/tingling in the arms or legs. Allergies Allergy/AdvReac Type Severity Reaction Status Date / Time No Known Allergies Allergy Verified 01/02/25 10:16 Home Medications Medication Instructions Recorded Confirmed Type multivitamin (Daily Multi-Vitamin 1 tab PO DAILY 02/07/20 05/11/25 History tablet) vitamin B complex 1 tab PO QPM 04/28/20 05/11/25 History calcium carbonate (Calcium 600) 0 mg PO QPM 02/11/23 05/11/25 History magnesium 0 tab PO QPM 02/11/23 05/11/25 History zinc 1 tab PO QAM 02/11/23 05/11/25 History cholecalciferol (vitamin D3) 25 0 unit PO QPM 02/17/23 05/11/25 History mcg (1,000 unit) capsule zoledronic acid 5 mg/100 mL in 1 ea IV ONCE 03/16/24 05/11/25 History mannitol 5 %-water intravenous piggybck (Reclast) omega 2-wrx-gvm-fish oil 60 mg-90 1 cap PO DAILY 11/09/24 05/11/25 History mg-500 mg capsule (Fish Oil) doxycycline hyclate 100 mg capsule 100 mg PO BID 8 days #16 caps 05/13/25 Rx Past Med/Surg History Problem List (Updated 05/11/25 @ 21:36 by Epi Kendrick PA-C) Fever (Acute) Hyponatremia (Acute) Thrombocytopenia (Acute) Tachycardia Fever Fracture of fifth metacarpal bone of left hand (Acute ~05/27/24) left hand/minimally displaced oblique fracture through the base of the fifth metacarpal History of colon polyps GERD (gastroesophageal reflux disease) Migratory pain Pericardial effusion Lung nodule seen on imaging study "told it was nothing to worry about after having this checked" Dyslipidemia Mitral regurgitation Aortic valve insufficiency Leukopenia (Chronic) Low back pain (Chronic) Osteopenia (Chronic) Vitamin D deficiency (Chronic) Cardiac murmur follows with [facility] cardio Medical History Mitral regurgitation Pericardial effusion hx- states was very mild Dyslipidemia Lung nodule seen on imaging study "told it was nothing to worry about after having this checked" History of COVID-19 (04/2022) no hosp; resolved Aortic valve insufficiency Cardiac murmur follows with [facility] cardio GERD (gastroesophageal reflux disease) Osteoporosis Hiatal hernia Osteoarthritis Left inguinal hernia Surgical History History of right breast biopsy benign--titanium loop present in breast History of section History of colonoscopy History of esophagogastroduodenoscopy (EGD) History of tooth extraction wisdom teeth Family History Father Family history of diabetes mellitus Myocardial infarction Cardiac disorder Diabetes Mother Family history of diabetes mellitus Cardiac disorder Diabetes Brother Family history of diabetes mellitus Diabetes Hypertension Sister Family history of diabetes mellitus Diabetes Gallbladder disease Denies family history of Ovarian cancer Prostate cancer Breast cancer Colorectal cancer Social History Smoking Status: Never smoker Tobacco Type: Cigarettes Age Started Using Tobacco: 21; Age Quit Using Tobacco: 35; packs per day: 0.5; Cigarettes Per Day: 1-2; Second Hand Exposure: Yes (as child); Do You Dip or Chew Tobacco: No; Hx Alcohol Use: Yes Alcohol type: wine and hard liquor Alcohol Intake Frequency: Monthly or Less Hx Substance Use: No Preferred Language: Swiss Communication Ability: Effective Visual Impairment: No Limitations Hearing Ability: Normal Personnel Coordinator Required: No Beliefs That Will Affect Care: None marital status: Current Living Situation: Spouse Current Living Situation Comment: Lives with current occupational status: retired 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 How many Children do You have: 1 Feels Safe at Home: Yes Childhood Exposure to Second-Hand Smoke: Yes Diet: regular Diet Comment: regular caffeine: Yes during the past year weight has: remained stable Dental Care, Regularly: Yes Physical Activity Frequency: Daily Seatbelt Use: always Sunscreen Use: Yes (sometimes ) Assistive Devices: Glasses Review of Systems Review of Systems: See HPI above Physical Exam Physical Exam: General: no acute distress; pleasant affect; and sister at bedside; non- toxic appearing; frail-appearing; cooperative; SpO2 94% on RA HEENT: normocephalic, atraumatic; PERRLA; vision and hearing intact; patient demonstrates ability to protrude and wiggle tongue bilaterally without deficits Neck: supple; trachea midline Skin: warm, dry without signs of tenting; no cyanosis CV: chest wall NTP; RRR; pulses intact and symmetric at radial, DP, and PT Lungs: no acute respiratory distress; symmetrical chest wall expansion; clear breath sounds across all lung mcclellan w/o adventitious sounds; no wheezing ABD: Soft, NTP; BS present; no rebound/guarding; no distention; hips are NTP bilaterally MSK: no tics or fasciculations; no edema noted in the LEs b/l, nonerythematous Neuro: A&Ox3; normal mood and affect; fluent speech; patient reports sensation is intact symmetric in the lower extremity bilaterally assessed via light touch Results & Data Results & Data Vital Signs (Past 12 Hours) Vital Signs Temp Pulse Pulse Resp BP BP Pulse Ox 05/11/25 17:22 95 H 05/11/25 15:55 101 H 18 124/77 93 05/11/25 15:54 101 H 20 97 05/11/25 15:19 37.8 C H 113 H 18 116/70 93 O2 Del Method 05/11/25 17:22 05/11/25 15:55 Room Air 05/11/25 15:54 Room Air 05/11/25 15:19 Room Air Laboratory Results Abnormal lab results 05/11/25 Range/Units 15:50 WBC 2.13 L (4.8-10.8) K/ul RBC 3.91 L (4.20-5.40) M/uL Hct 35.2 L (37.0-47.0) % Plt Count 69 L (130-400) K/uL Lymph # (Auto) 0.41 L (1.20-3.40) K/uL Sodium 132 L (136-145) mmol/L Potassium 3.4 L (3.5-5.1) mmol/L Creatinine 0.56 L (0.6-1.2) mg/dl BUN/Creatinine Ratio 30.4 H (10-20) Glucose 137 H (70-99(Fasting)) mg/dl AST 44 H (13-39) U/L Procalcitonin 1.16 H (0-0.5) ng/ml Diagnostic Findings Abdomen/Pelvis CT 05/11/25 15:34 EXAMINATION: CT of the abdomen and pelvis performed after the administration of IV contrast TECHNIQUE: Helical CT images from the lung bases through the symphysis pubis were obtained with contrast. Coronal and sagittal reformatted images were generated at a workstation for further assessment. Dose reduction techniques were achieved by using automatic exposure control and/or adjustment of mA and/or kV according to patient size and/or use of iterative reconstruction technique. COMPARISON: None HISTORY: Abdominal pain FINDINGS: Lower chest: No consolidation. No pleural effusion or pneumothorax. Scattered streaky atelectasis throughout the mid and lower lungs. Liver: No suspicious liver lesions. Portal veins appear patent. Gallbladder: No gallstones. No evidence of acute cholecystitis. Spleen: Normal size. Pancreas: No suspicious pancreatic lesions. The pancreatic duct is not dilated. Adrenal glands: No adrenal nodules. Kidneys: No hydronephrosis or obstructing renal stones. Bladder / Pelvic organs: There is dilation of the left gonadal vein up to 10 mm. The left periuterine vessels are prominent.. Bowel: No bowel obstruction. No abnormal bowel wall thickening. The appendix is unremarkable. There is a moderate to large colonic stool burden, as well as significant gaseous distention of the right colon. Lymph nodes: No retroperitoneal, mesenteric, or pelvic lymphadenopathy. Peritoneum / Retroperitoneum: No free fluid or air within the abdomen. Vessels: No infrarenal aortic aneurysm. Bones and soft tissues: No suspicious lesion in the bones. IMPRESSION: Moderate to large colonic stool burden, as well as significant gaseous distention of the right colon, which may be seen with constipation. Prominent left gonadal vein and left periuterine vessels, may be seen with pelvic congestion syndrome. Electronically signed by Ian Ly 05-11-2025 5:11 PM Chest X-Ray 05/11/25 15:34 Chest radiograph, one view History: Chest pain Comparison: None Findings: Single AP view of the chest performed. No focal consolidation or pleural effusion. No pneumothorax. The cardiomediastinal silhouette is within normal limits. Normal pulmonary vascularity. No evidence for lymphadenopathy. No visualized bony or soft tissue abnormality. Impression: Normal chest radiograph Electronically signed by Ian Ly 05-11-2025 4:29 PM ECG Additional Comments: EKG ordered, pending Code Status & VTE Plan Code Status Full code VTE Prophylaxis Plan VTE Prophylaxis will be ordered: Yes Supervising Physician Co-Signing Physician Notes Attending Attestation and Admit Note: Pt seen/examined, chart reviewed, admit care plan d/w TOLU Craven. I agree w/ the de la torre components of his admission documentation. Mrs. Haider is a 70yo female with h/o vitamin D deficiency, aortic valve insufficiency, and GERD. Presented with several weeks of low back pain and bilateral hip pain (not the groin or trochanteric area but the outermost region of the lumbar paraspinal region). She then developed fevers 4 to 5 days ago along with myalgias and simply feeling poorly. PMH/PSH/allergies/meds/sochx - reviewed VSS, Tm 37.8 gen - nontoxic, pleasant, NAD mouth - MMM neck - no JVD; no lymph nodes heart - RRR, s1 s2, no murmur lungs - CTA b/l abd - soft NT ND BS+ musculo - log rolling of both hips does not elicit pain; no pain over the trochanteric area b/l; tender paraspinal lumbar region b/l vascular - pulses 2+ b/l feet; no peripheral edema labs reviewed CT a/p - severe constipation, findings suggestive of pelvic congestion syndrome? A/P: 1. leukopenia, thrombocytopenia - viral process? tick-borne infection? -anaplasmosis, babesia smears negative -lyme negative -place on empiric doxy, however, while awaiting DNA testing -cbc am -if counts worsen would broaden the work-up to include EBV, CMV, parvo titers, etc. 2. low back pain - since it started several weeks ago it may not be related to the current illness. "hip pain" is not intrinsic hip issue - hip pain likely more so from the back. 3. constipation - needs bowel regimen; has considerable stool burden on CT. 4. ??pelvic congestion syndrome - outpatient f/u for such. Dick Wilkins MD PG Care Time/CCT Total # of Minutes Spent Total Time Spent with Patient: Total time spent is greater than 50% in coordination of care (as documented) at patient's floor/unit and/or counseling patient: Coding [place] [address] INT INP/OBS CARE 2/55MIN Patient Type Established Medical Decision Making Moderate Complexity Diagnoses Fever R50.9 Tachycardia R00.0 Thrombocytopenia D69.6 Leukopenia D72.819 Hyponatremia E87.1
[2025-05-11] MEDS: DOXYCYCLINE HYCLATE 100 MG CAP PO STA (17:37)
[2025-05-11] MEDS: cefTRIAXone SODIUM 2,000 MG/50 ML BAG IV STA (17:37)
[2025-05-11 18:10] LABS: Appearance Urine Clear (Clear); Bacteria Urine Automated None Seen (None Seen); Cast Urine Automated 0-2 /lpf (0-2); Epithelial Cell Urine Auto 0-2 /hpf (0-2); Glucose Urine UA Negative (Negative); RBC Urine Automated 0-2 /hpf (0-2); WBC Urine Automated 0-5 /hpf (0-5)
[2025-05-11] MEDS: POTASSIUM CHLORIDE CRTAB 20 MEQ TABCR PO STA (18:31)
[2025-05-11] MEDS: SODIUM CHLORIDE 0.9% 1,000 ML IV SCH (20:16)
[2025-05-12] MEDS ORDERED: ACETAMINOPHEN 325 MG TAB PO PRN (00:06)
[2025-05-12] MEDS ORDERED: ONDANSETRON INJ 2 MG/ML 2 ML VIAL IV PRN (00:06)
[2025-05-12] MEDS ORDERED: MELATONIN 3 MG TAB PO PRN (00:06)
[2025-05-12] MEDS: DOXYCYCLINE HYCLATE 100 MG CAP PO SCH (00:29)
[2025-05-12 08:00] LABS: Hematocrit (blood only) 31.9 % (37.0-47.0); Hemoglobin 10.8 g/dl (12.0-16.0); Mean Corpuscular Hemoglobin 31.7 pg (25.0-34.0); Mean Corpuscular Volume 93.5 fL (80.0-100.0); Platelet Count 61 K/uL (130-400); RDW Standard Deviation 45.1 fL (36.4-46.3); Red Blood Count 3.41 M/uL (4.20-5.40); White Blood Count 1.71 K/ul (4.8-10.8)
[2025-05-12 08:27] LABS: Alanine Aminotransferase 19.0 U/L (7-52); Anion Gap 6.0 (3-11); Blood Urea Nitrogen 10.0 mg/dl (6-23); Calcium 8.0 mg/dl (8.6-10.3); Carbon Dioxide 25.0 mmol/L (21-32); Chloride 108.0 mmol/L (98-107); Creatinine Clr Calc Pharmacy 99.8 ml/min; Glucose 93.0 mg/dl (70-99(Fasting)); Magnesium 1.7 mg/dl (1.7-2.4); Potassium 3.5 mmol/L (3.5-5.1); Sodium 139.0 mmol/L (136-145)
[2025-05-12 09:34] LABS: Immature Granulocytes # (auto) 0.00 K/uL (0.01-0.20); Immature Granulocytes % (auto) 0.0 %
--- NOTE | 2025-05-12 11:05 | Hospitalist Progress Note ---
Date of Service May 12, 2025 Assessment & Plan (1) Fever: (2) Tachycardia: (3) Thrombocytopenia: (4) Leukopenia: (5) Hyponatremia: Plan This patient is a 70-year-old female who presented on 05/11 for bilateral hip, lower back pain, achiness, and intermittent fevers at home. #Suspected tickborne illness | fever Leukopenic at 2.13; febrile at 37.8 C + tachycardic at 113 bpm on ED arrival UA negative CXR without acute abnormalities Lyme negative BioFire negative CRP elevated at 12.19 Procalcitonin mildly elevated 1.16 Suspect Anaplasmosis d/t clinical picture, elevated AST, and new thrombocytopenia on arrival Babesiosis and Ehrlichia also pending Ceftriaxone 2000 mg IV q24h Doxycycline 100 mg p.o. q12h #Pancytopenia New; thrombocytopenia 69->61, and leukopenia 2.13->1.71 Hgb 12.3->10.8 (in the setting of IVF, suspect volume dilution) No PMHx of EBV, cancer, or BM deficiencies Neutropenic isolation precautions Trend labs #Tachycardia (resolved) Downgrade Medtele -> Medsurg #Hyponatremia | hypokalemia (resolved) Replete PRN Disposition: Continued stay due to downtrending labs, neutropenia, and pending tickborne panel Downgrade from MedSurg telemetry -> MedSurg on 05/12 VTE PPx: SCDs Admission and Anticipated Discharge Date Admission Date: May 12, 2025 Supervising Physician Co-Signing Physician Notes Attending Attestation - Chart reviewed, care plan d/w TOLU Craven. I agree w/ the de la torre components of his documentation. If CBC abnormalities persist, and if she fails to respond to doxycycline for presumed tick-borne illness, would consider checking EBV, CMV, and parvo titers. Also consider additional tick-borne w/u including rickettsiel panel and labs for borrelia miyamotoi. Could also consider formal peripheral smear by pathology to r/o primary bone marrow disorder if infectious w/u is negative and if she fails to improve. Dick Wilkins MD Subjective Mrs. Haider is glad to report that she is feeling better this morning. Her hip pain has largely resolved, but she still having achiness in her back. While she woke up feeling "warm", she does not believe she had any fevers overnight. She also noticed blood in her mucus this morning after blowing her nose. However, she noted that her room felt dry, and might of had dryness in her lip/nasal passage. Patient denies any pain in her ear, and reports she had a sore throat last night but not this morning. She denies prior history of mono, bone marrow deficiency, cancer, or liver issues. ROS: Patient endorses chest tightness, dry mouth, headache, dry cough, lower back pain, and constipation. Patient denies fever, chills, night sweats, ear pain, dizziness/lightheadedness while ambulate to the bathroom, congestion, chest pain, SOB, N/V/D, burning with urination, or pain in the hips (resolved). Review of Systems Review of Systems: See HPI above Physical Exam Physical Exam: General: no acute distress; pleasant affect; and sister at bedside; non- toxic appearing; frail-appearing; cooperative; SpO2 94% on RA HEENT: normocephalic, atraumatic; PERRLA; vision and hearing intact; dry nasal passage Neck: supple; trachea midline Skin: warm, dry without signs of tenting; no cyanosis CV: chest wall NTP; RRR; pulses intact and symmetric at radial, DP, and PT Lungs: no acute respiratory distress; symmetrical chest wall expansion; clear b reath sounds across all lung mcclellan w/o adventitious sounds; no wheezing ABD: Soft, NTP in all 4 quadrant; no rashes on the stomach; BS present; no rebound/guarding; no distention; Back: Upper spine NTP, lower spine NTP; no rashes or bruising appreciated the abdomen or flanks bilaterally; hips are NTP bilaterally MSK: no tics or fasciculations; no edema noted in the LEs b/l, nonerythematous Neuro: A&Ox3; normal mood and affect; fluent speech; patient reports sensation is intact symmetric in the lower extremity bilaterally assessed via light touch Results & Data Results & Data Vital Signs (Past 12 Hours) Vital Signs Temp Pulse Pulse Resp BP BP Pulse Ox 05/12/25 08:16 36.8 C 76 17 102/66 94 05/12/25 05:49 75 05/12/25 03:45 37.5 C 89 12 129/67 92 05/12/25 03:45 37.5 C 89 05/12/25 00:05 93 H 05/11/25 23:45 05/11/25 23:45 37.3 C 93 H 16 114/64 93 05/11/25 23:30 85 29 H 95 05/11/25 23:03 85 20 98 O2 Del Method 05/12/25 08:16 Room Air 05/12/25 05:49 05/12/25 03:45 Room Air 05/12/25 03:45 05/12/25 00:05 05/11/25 23:45 Room Air 05/11/25 23:45 Room Air 05/11/25 23:30 05/11/25 23:03 PG Care Time/CCT Total # of Minutes Spent Total Time Spent with Patient: Total time spent is greater than 50% in coordination of care (as documented) at patient's floor/unit and/or counseling patient: Coding [place] [address] SUB INP/OBS CARE 2/35MIN Patient Type Established Medical Decision Making Moderate Complexity Diagnoses Fever R50.9 Tachycardia R00.0 Thrombocytopenia D69.6 Leukopenia D72.819 Hyponatremia E87.1
[2025-05-12] MEDS: INFLUENZA VACC TS2025-26(65y+)/PF (IIV3) 0.5mL Syr IM ONE (18:14)
[2025-05-12] MEDS: cefTRIAXone SODIUM 2,000 MG/50 ML BAG IV SCH (18:20)
[2025-05-12] MEDS: POLYETHYLENE (MIRALAX) 17 GM PACK PO PRN (19:07)
--- NOTE | 2025-05-12 19:43 | Electrocardiogram Report ---
Test Reason : Blood Pressure : */* mmHG Vent. Rate : 84 BPM Atrial Rate : 84 BPM P-R Int : 168 ms QRS Dur : 78 ms QT Int : 352 ms P-R-T Axes : 31 25 32 degrees QTcB Int : 415 ms Normal sinus rhythm Normal ECG When compared with ECG of 11-Jan-2023 03:19, No significant change was found Confirmed by Ming oCker ([id number]) on 05/12/2025 7:43:08 PM Referred By: REFERRED SELF Confirmed By: Ming Coker
[2025-05-12 23:02] VITALS: RESP 18; O2SAT 95
[2025-05-13 07:48] VITALS: BP 119/66; TEMP 97.9
[2025-05-13 08:21] LABS: Hematocrit (blood only) 33.6 % (37.0-47.0); Hemoglobin 11.3 g/dl (12.0-16.0); Mean Corpuscular Hemoglobin 31.1 pg (25.0-34.0); Mean Corpuscular Volume 92.6 fL (80.0-100.0); Platelet Count 97 K/uL (130-400); RDW Standard Deviation 45.1 fL (36.4-46.3); Red Blood Count 3.63 M/uL (4.20-5.40); White Blood Count 3.22 K/ul (4.8-10.8)
[2025-05-13] MEDS: SENNA 8.6 MG TAB PO SCH (08:31)
[2025-05-13 08:40] LABS: Immature Granulocytes # (auto) 0.00 K/uL (0.01-0.20); Immature Granulocytes % (auto) 0.0 %; Polychromasia 1+
--- NOTE | 2025-05-13 13:02 | Discharge Summary ---
Discharge Summary Date of Service May 13, 2025 Principal Dx & Hospital Course #1 = Principal Diagnosis (1) Fever: (2) Tachycardia: (3) Thrombocytopenia: (4) Leukopenia: (5) Hyponatremia: Plan This patient is a 70-year-old female with past medical history significant for vitamin D deficiency, aortic valve insufficiency and GERD who presented to [facility] 05/11 for bilateral hip, lower back pain, achiness, and intermittent fevers at home. Workup in ED revealed leukopenia at 2.13, fever of 37.8 and a tachycardic heart rate. UA was negative for infection, chest ray without acute abnormalities, Lyme negative, BioFire negative, CRP was elevation at 12.19, procalcitonin with mild elevation at 1.16. Suspected anaplasmosis due to clinical presentation, elevated AST and new thrombocytopenia. Babesiosis and Ehrlichia pending. She was treated empirically with ceftriaxone 2000 mg IV every 24 hours, doxycycline 100 mg p.o. twice daily. Her CBC has improved on day of discharge with leukopenia improving, thrombocytopenia improving and no marked anemia. AST down trended to normal on 05/12/2025 at 34. She has been without fever since the evening of 05/11/2025. She has been non-tachycardic and nor motensive. Patient states that her symptoms have almost entirely resolved, outside of some complaints of lower back discomfort which has improved. She has been able to stand up and move about with less reproducible pain in her lower back with activity. She did have a chiropractic adjustment approximately ten days ago prior to her development of intermittent fevers. She also points out a bite brit to the left elbow area that she initially did not endorse with admission. States last week she woke up in the middle of the night and felt a "pimple-like" area on her left elbow. She pushed on the area and the feeling of the pimple being there went away. Since then she has had a small 0.5m circular, slightly erythematous punctuate area that has been without itching or pain. She wonders if she was "bit by something". She has been eating and drinking well. Her energy level has improved. She is emptying her bladder and moving her bowels. She has tolerated Ceftriaxone and Doxycycline. #Suspected tickborne illness | fever -clinical improvement of symptoms with Doxycycline -Babesiosis and Ehrlichia pending, added on Rickettsial, borrelia -Ceftriaxone 2000 mg IV q24h, received two doses -Doxycycline 100 mg p.o. q12h, prescription for 8 more days upon d/c #Pancytopenia -thrombocytopenia 69->61>97, leukopenia 2.13>1.71>3.22 -Hgb 12.3->10.8>11.3 -No PMH of EBV, cancer, or BM deficiencies -follow up with PCP for CBC surveillance (highly encouraged prompt f/u to have lab work monitored) #Tachycardia (resolved) -no tachycardic rate at time of d/c #Hyponatremia | hypokalemia (resolved) -Repleted, stable on 05/12/25 Disposition: d/c home with prescription for Doxycycline and f/u with PCP in one week Admission HPI Per Admitting Provider Mrs. Haider is a 70-year-old female with PMH of vitamin D deficiency, aortic valve insufficiency, and GERD. She presented on 05/11 for bilateral hip and lower back pain x 3 weeks [employer]. Initially, she thought it might be due to her history of sciatica or compression fractures, but then she began developing fevers 4 to 5 days ago. Prior episodes of sciatica were only left-sided; this episode is bilateral. She mainly has pain when she bends down to flush the toilet, or times to get out of bed. 0 out of 10 pain while resting, but 8 out of 10 pain with activity. Patient began having fevers for 5 days ago, and she has been rotating Tylenol and ibuprofen at bedtime for her symptoms. She says that if she did not take Tylenol before bed, she would "wake up with night sweats". Originally, she thought that she "had the flu". Normally, she gets her flu shot every fall, but has not gotten her yet. No sick contacts to her knowledge. No recent falls or injuries to the abdomen or pelvis. While patient denies any rashes or tick bites, she and her do live in the [facility]. She had a tickborne illness "years ago". She has also had intermittent constipation, but reports she had a solid bowel movement yesterday. No blood in the urine or stool. Patient did not take her regular morning medicine today, but only takes vitamins. No recent change in medications or supplements. NKDA. Patient is febrile at 37.8 C on arrival; vitals otherwise stable. ED course: Ceftriaxone 2000 mg IV Doxycycline 100 mg p.o. NSS 1000 mL IV Acetaminophen 650 mg p.o. ROS: Patient endorses easy fatigability, intermittent fevers, rapid heart rate (she reports that she woke up 1 night and her heart rate was around 120 bpm), night sweats, neck stiffness, bilateral hip pain, lower back pain, increased dyspnea on exertion (such as walking up steps), and generalized "achiness". Patient denies lightheadedness with ambulation, headaches, double vision, photophobia, rashes, tick bites, neck pain, cough, chest pain, SOB, pleuritic CP, nausea, vomiting, diarrhea, burning with urination, blood in the urine or stool, or numbness/tingling in the arms or legs. Discharge Exam GENERAL APPEARANCE: A&O. Sitting comfortably in chair. NAD. SKIN: Normal color without rashes or lesions. Normal turgor. HEENT: Head AT/NC. Buccal mucosa is moist and pink. NECK: No jugular venous distention. No thyroid enlargement. There is no lymphadenopathy. HEART: RRR without m/g/r LUNGS: Normal inspiratory effort. CTA without w/r/r ABDOMEN: No guarding or rigidity. Normoactive BS in all four quadrants. Abdomen soft and NT. MSK: No bony gross/deformities throughout. ROM intact. EXTREMITIES: No edema, No peripheral cyanosis. Small 0.5cm circular area of redness to left elbow without drainage, streaking or drainage. Neuro: CN 2-12 grossly intact. No focal neuro deficits PSYCHIATRIC: Normal affect. Eye contact is good. Speech is normal rate and content. Responses are appropriate. Discharge Plan Discharge Items Patient Disposition: Home - Self-Care Reason For Visit: FEVERS, SUSPECTED TICKBORNE ILLNESS Discharge Diagnosis: Fevers, suspected tickborne illness Condition on Discharge: Good Activity: Resume your previous activity Bathing: No limitations Driving/Machine Use: No limitations Weightbearing: Full weightbearing Non-emergency contact: Primary Care Provider Call non-emergency contact if: you have any medication questions, your symptoms worsen, your pain is not controlled, your pain is worsening and your temperature is above 101 Follow-up/Referrals: Funmi Almaraz MD [Primary Care Provider] - 05/20/25 11:00 am () Diet: Regular Addtl Attending Provider Instructions: Mrs. Haider, You were admitted to the hospital for fever and suspected tickborne illness. Your symptoms have clinically improved and you have been without fever since you were admitted. At this time your initial Lyme screen was negative, but you are being actively treated for a possible tick-borne illness as your other testing is pending. You lab work improved during the course of your stay, but it is important you see your PCP for follow up on this if any additional testing is needed. Medications: Your medication list has been reviewed and reconciled upon discharge to ensure accuracy and continuity of care. An updated list of all your medications is included with your hospital discharge paperwork. Please review this list closely, and make note of any changes. We sent a new medication called Doxycycline to your pharmacy. Take Doxycycline two times a day for the next 8 days. Start this medication this evening. This is an antibiotic is to help treat possible tick-borne illness. Take your medications as instructed; do not skip a dose of your medicines. Make sure all of your doctors know every medicine you are taking (including jzlc-jfw-siizukt medicines, vitamins, and supplements). Call your primary care provider before taking any new medicines (including over- the-counter medicines, vitamins, and supplements), because some of these may interact with your current medications, or may make your symptoms worse. Tell your primary care provider if you cannot afford your medications. Activity: You can do normal everyday activities as your body allows. Take rest breaks if you feel tired. Do not overexert. Stop activity if you have pain, shortness of breath or feel dizzy. Follow-up appointments: Make an appointment with your primary care physician within one week of discharge. A copy of this summary will be sent to them. Every time you see your primary care physician, or any other doctor, bring your medication list, and a list of questions. CONTACT YOUR PRIMARY CARE PROVIDER if you experience any of the following: Shortness of breath or difficulty breathing Fevers or chills Feeling tired with normal activity or experiencing dizziness or fainting Difficulty following your treatment plan, or difficulty taking medications CALL 911 OR GO TO THE EMERGENCY DEPARTMENT if you experience any of the following: Severe abdominal pain or nausea/vomiting Severe chest pain, or chest pain that radiates (moves) to your jaw or arm Sudden, severe shortness of breath or difficulty breathing Thank you for allowing us to participate in your care. Pending Studies at Discharge: Yes Studies:: Babesia, Ehrlichia, Borellia, Rickettsial pending Stand-Alone Forms: [facility], Smoking Cessation Medications and DC Order Prescriptions: New doxycycline hyclate 100 mg Capsule 100 mg PO BID 8 Days Qty: 16 0RF Continued multivitamin [Daily Multi-Vitamin] Tablet 1 tab PO DAILY Patient Comments: 05/11- Per pt, she doesnt need any of her vitamins during this admission cholecalciferol (vitamin D3) 25 mcg (1,000 unit) capsule 0 unit PO QPM Patient Comments: 05/11- Per pt, she doesnt need any of her vitamins during this admission vitamin B complex Tablet 1 tab PO QPM Patient Comments: 05/11- Per pt, she doesnt need any of her vitamins during this admission omega 2-dxw-esk-fish oil [Fish Oil] 60-90-500 mg capsule 1 cap PO DAILY Patient Comments: 05/11- Per pt, she doesnt need any of her vitamins during this admission zoledronic zvkp-tphoysul-xdmpo [Reclast] 5 mg/100 mL piggyback 1 ea IV ONCE Patient Comments: Rx Instructions: yearly calcium carbonate [Calcium 600] 600 mg calcium (1,500 mg) Tablet 0 mg PO QPM Patient Comments: 05/11- Per pt, she doesnt need any of her vitamins during this admission zinc Tablet,Chewable 1 tab PO QAM Patient Comments: 05/11- Per pt, she doesnt need any of her vitamins during this admission magnesium Tablet 0 tab PO QPM Patient Comments: 05/11- Per pt, she doesnt need any of her vitamins during this admission Discharge Orders: Discharge Order (Routine); Ordered 05/13/25 Ordered By: Carmen Ceja/Other Patient Handouts: Preventing Lyme Disease, Tick Bites Admission Data Admit Date/Time: 05/12/25 10:00 Attending Provider: Estuardo Bell Admit Provider: Dick Wilkins Primary Care Provider: Funmi Almaraz Other Providers: Dick Wilkins Hospital Stay Data Consultations 05/11/25 18:15 ED Decision to Admit Stat Diagnostic Imagining Performed 05/11/25 15:34 CT abd pelvis IV con only Stat Pending Results Patient Have Any Pending Studies at Discharge: Yes Discharge Instructions Given to Patient (Per Discharging Provider) Mrs. Haider, You were admitted to the hospital for fever and suspected tickborne illness. Your symptoms have clinically improved and you have been without fever since you were admitted. At this time your initial Lyme screen was negative, but you are being actively treated for a possible tick-borne illness as your other testing is pending. You lab work improved during the course of your stay, but it is important you see your PCP for follow up on this if any additional testing is needed. Medications: Your medication list has been reviewed and reconciled upon discharge to ensure accuracy and continuity of care. An updated list of all your medications is included with your hospital discharge paperwork. Please review this list closely, and make note of any changes. We sent a new medication called Doxycycline to your pharmacy. Take Doxycycline two times a day for the next 8 days. Start this medication this evening. This is an antibiotic is to help treat possible tick-borne illness. Take your medications as instructed; do not skip a dose of your medicines. Make sure all of your doctors know every medicine you are taking (including ymdy-ecb-dngwzow medicines, vitamins, and supplements). Call your primary care provider before taking any new medicines (including over- the-counter medicines, vitamins, and supplements), because some of these may interact with your current medications, or may make your symptoms worse. Tell your primary care provider if you cannot afford your medications. Activity: You can do normal everyday activities as your body allows. Take rest breaks if you feel tired. Do not overexert. Stop activity if you have pain, shortness of breath or feel dizzy. Follow-up appointments: Make an appointment with your primary care physician within one week of discharge. A copy of this summary will be sent to them. Every time you see your primary care physician, or any other doctor, bring your medication list, and a list of questions. CONTACT YOUR PRIMARY CARE PROVIDER if you experience any of the following: Shortness of breath or difficulty breathing Fevers or chills Feeling tired with normal activity or experiencing dizziness or fainting Difficulty following your treatment plan, or difficulty taking medications CALL 911 OR GO TO THE EMERGENCY DEPARTMENT if you experience any of the following: Severe abdominal pain or nausea/vomiting Severe chest pain, or chest pain that radiates (moves) to your jaw or arm Sudden, severe shortness of breath or difficulty breathing Thank you for allowing us to participate in your care. Total Time Total Time Spent Total Time Spent (In Minutes): 50 minutes total Coding Level of Care Code 99259 INP/OBS DISCH >30 MIN Diagnoses Fever R50.9 Tachycardia R00.0 Thrombocytopenia D69.6 Leukopenia D72.819 Hyponatremia E87.1
[2025-05-13 13:06] VITALS: PULSE 88
== END 2025-05-13 13:50 | disposition home or self-care (01) | DRG 868 ==
LOC: ED 14:50 → 2N 14:50 → SUATTDRO 05-12 10:00